=== PATIENT | male | born 1975 | race Native Hawaiian/Other Pacific Islander ===

== ENCOUNTER 2017-04-24 11:36 | Emergency (ER) | payer OTHER ==
[~2017-04-24] VITALS: Ht 167.6 cm; Wt 88.5 kg
[~2017-04-24 11:36] MED LIST: IBUPROFEN 800800 MG PO
[2017-04-24 13:24] LABS: ABSOLUTE NEUTROPHILS 10.4 thou/uL (1.4-8.2); BASOPHILS 0.6 % (0.0-2.0); EOSINOPHILS 0.4 % (0.0-3.0); HEMATOCRIT 44.4 % (42.0-52.0); HEMOGLOBIN 15.4 gm/dL (14.0-18.0); LYMPHOCYTES 13.3 % (24.0-44.0); MCHC 34.7 g/dL (28.0-37.0); MCV 89.5 fL (80.0-100.0); PLATELET COUNT 232 thou/uL (150-400); POLYS 81.7 % (36.0-66.0); RBC 4.96 mil/uL (4.50-6.00); RDW 12.9 % (10.5-14.5); WBC 12.8 thou/uL (4.0-11.0)
[2017-04-24 13:26] LABS: MANUAL DIFF NO
[2017-04-24 13:31] LABS: CALCIUM 9.3 mg/dL (8.5-10.1); CREATININE 0.9 mg/dL (0.7-1.3); POTASSIUM 3.5 mmol/L (3.5-5.1)
[2017-04-24] MEDS ORDERED: ULTRAM 50MG TAB50 MG PO (15:50)
[2017-04-24 16:05] VITALS: BP 130/73
== END 2017-04-24 16:09 | disposition home or self-care (01) ==
LOC: ER 11:36
PROVIDERS: Emergency Medicine
DX: S06.0X0A Concussion without loss of consciousness, initial encounter (principal); S70.01XA Contusion of right hip, initial encounter; S00.03XA Contusion of scalp, initial encounter; F17.210 Nicotine dependence, cigarettes, uncomplicated; F10.99 Alcohol use, unspecified with unspecified alcohol-induced disorder; W11.XXXA Fall on and from ladder, initial encounter; Y93.89 Activity, other specified; Y92.89 Other specified places as the place of occurrence of the external cause; Y99.0 Civilian activity done for income or pay

== ENCOUNTER 2020-03-24 14:52 | Emergency (ER) | payer OTHER ==
[~2020-03-24] VITALS: Ht 162.6 cm; Wt 86.2 kg
[~2020-03-24 14:52] MED LIST changes: +ULTRAM 50MG TAB50 MG PO
[2020-03-24] MEDS ORDERED: AMOXICILLIN875 MG PO (14:57)
[2020-03-24 16:02] LABS: ABSOLUTE NEUTROPHILS 4.2 thou/uL (1.4-8.2); BASOPHILS 0.7 % (0.0-2.0); EOSINOPHILS 2.2 % (0.0-3.0); HEMATOCRIT 42.9 % (42.0-52.0); LYMPHOCYTES 18.9 % (24.0-44.0); MCH 32.4 pg (26.0-34.0); MCV 92.5 fL (80.0-100.0); MONOCYTES 8.4 % (1.0-8.0); PLATELET COUNT 202 thou/uL (150-400); POLYS 69.8 % (36.0-66.0); RBC 4.64 mil/uL (4.50-6.00); RDW 13.3 % (10.5-14.5)
[2020-03-24 16:16] LABS: ANION GAP 7 mmol/L (7-16); BUN 13 mg/dL (7-18); CALCIUM 8.3 mg/dL (8.5-10.1); CHLORIDE 106 mmol/L (98-107); CO2 28 mmol/L (21-32); CREATININE 0.9 mg/dL (0.7-1.3); GLUCOSE 103 mg/dL (74-106); POTASSIUM 3.8 mmol/L (3.5-5.1); SODIUM 141 mmol/L (136-145)
[2020-03-24 16:26] LABS: ALBUMIN 3.5 g/dL (3.4-5.0); SGOT 34 U/L (15-37); SGPT 48 U/L (30-65); TOTAL BILIRUBIN 0.5 mg/dL (0.2-1.0); TOTAL PROTEIN 7.1 g/dL (6.4-8.2); TROPONIN-I <0.06 ng/mL (<0.06)
[2020-03-24] MEDS ORDERED: BENADRYL25 MG PO (16:41)
[2020-03-24] MEDS ORDERED: CORTISPORIN OTI10 M2 OTIC (16:41)
[2020-03-24] MEDS ORDERED: DOXYCYCLINE 10100 MG PO (16:41)
[2020-03-24] MEDS ORDERED: PREDNISONE 20 M20 M1 PO (16:41)
[2020-03-24 18:00] VITALS: BP 131/77
--- NOTE | 2020-03-25 07:57 | EKG ---
[facility] [place] [place] [address] ELECTROCARDIOGRAM REPORT Name: DONAL MART Room #: DEP [facility].#: [id number] Admission: 03/24/20 Attend Phys: Discharge: 03/24/20 Date of : 73 Report #: [id number] THIS REPORT FOR: cc: VADIM - Tatianna family physician/PCP VADIM - Tatianna family physician/PCP Frank Beckett MD [facility] THIS REPORT FOR: //name// [facility] [place] [place] ED Test Date: 2020-03-24 Test Time: 16:04:19 Pat Name: DONAL MATHIS Department: Room: Gender: Design Lead: [facility] : 1975 Requested By: Alin Amaya Order Number: [id number] MD: Frank Beckett Measurements Intervals [place] Rate: 67 P: 54 [place]: 163 QRS: 32 QRSD: 91 T: 17 QT: 409 QTc: 432 Interpretive Statements Sinus rhythm Normal tracing Compared to ECG 03/02/2019 04:20:12 No significant changes Electronically Signed On 03-25-2020 7:57:19 CDT by Frank Beckett [email or web address] <ELECTRONICALLY SIGNED> By: Frank Beckett MD, FACC 03/25/20 [id number] Frank Beckett MD, [facility] /EPI
== END 2020-03-24 18:14 | disposition home or self-care (01) ==
LOC: ER 14:52
PROVIDERS: Physician Assistant
DX: L27.0 Generalized skin eruption due to drugs and medicaments taken internally (principal); T36.0X5A Adverse effect of penicillins, initial encounter; R07.89 Other chest pain; H60.92 Unspecified otitis externa, left ear; H66.92 Otitis media, unspecified, left ear; R42 Dizziness and giddiness; F17.210 Nicotine dependence, cigarettes, uncomplicated; Z79.2 Long term (current) use of antibiotics; Y92.89 Other specified places as the place of occurrence of the external cause

== ENCOUNTER 2021-06-12 00:21 | Emergency (ER) | payer OTHER ==
[~2021-06-12] VITALS: Ht 167.6 cm; Wt 89.4 kg
[~2021-06-12 00:21] MED LIST changes: +AMOXICILLIN875 MG PO; +BENADRYL25 MG PO; +CORTISPORIN OTI10 M2 OTIC; +DOXYCYCLINE 10100 MG PO; +PREDNISONE 20 M20 M1 PO
[2021-06-12 03:10] LABS: ABSOLUTE NEUTROPHILS 2.7 thou/uL (1.4-8.2); EOSINOPHILS 6.1 % (0.0-3.0); HEMATOCRIT 42.9 % (42.0-52.0); HEMOGLOBIN 14.7 gm/dL (14.0-18.0); LYMPHOCYTES 34.7 % (24.0-44.0); MCH 31.8 pg (26.0-34.0); MCHC 34.2 g/dL (28.0-37.0); MCV 92.9 fL (80.0-100.0); MONOCYTES 8.6 % (1.0-8.0); PLATELET COUNT 206 thou/uL (150-400); POLYS 49.6 % (36.0-66.0); RBC 4.61 mil/uL (4.50-6.00); WBC 5.4 thou/uL (4.0-11.0)
[2021-06-12 03:14] LABS: ANION GAP 8 mmol/L (7-16); BUN 16 mg/dL (7-18); CALCIUM 8.6 mg/dL (8.5-10.1); CHLORIDE 106 mmol/L (98-107); CO2 28 mmol/L (21-32); CREATININE 0.9 mg/dL (0.7-1.3); GLUCOSE 120 mg/dL (74-106); POTASSIUM 4.3 mmol/L (3.5-5.1); SODIUM 142 mmol/L (136-145)
[2021-06-12 03:24] LABS: ALBUMIN 3.4 g/dL (3.4-5.0); DIRECT BILIRUBIN < 0.1 mg/dL (<0.1-0.2); LIPASE 166 U/L (73-393); SGOT 38 U/L (15-37); SGPT 74 U/L (16-63); TOTAL BILIRUBIN 0.4 mg/dL (0.2-1.0)
[2021-06-12] MEDS ORDERED: PRILOSEC OTC20 MG PO (04:01)
[2021-06-12 04:15] VITALS: BP 122/64
--- NOTE | 2021-06-14 07:29 | EKG ---
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 : 1975 Requested By: Kajal Montes Order Number: [id number] MD: Malick Treadwell Measurements Intervals [place] Rate: 63 P: 59 [place]: 166 QRS: 42 QRSD: 90 T: 16 QT: 400 QTc: 410 Interpretive Statements Sinus rhythm Abnormal R-wave progression, early transition Minimal ST elevation, anterior leads Compared to ECG 03/24/2020 16:04:19 ST (T wave) deviation now present Electronically Signed On 06-14-2021 7:29:31 CDT by Malick Treadwell [email or web address] <ELECTRONICALLY SIGNED> By: Malick Treadwell MD, [facility] 06/14/21 0729 9 9 Malick Treadwell MD, [facility] /EPI
== END 2021-06-12 04:17 | disposition home or self-care (01) ==
LOC: ER 00:21
PROVIDERS: Emergency Medicine
DX: K29.70 Gastritis, unspecified, without bleeding (principal); F17.210 Nicotine dependence, cigarettes, uncomplicated